=== PATIENT | male | born 1975 | race Two or more races ===

== ENCOUNTER 2018-06-09 20:24 | Emergency (ER) | payer BC ==
[~2018-06-09] VITALS: Ht 185.4 cm; Wt 82.6 kg
--- NOTE | 2018-06-09 20:30 | NUR ---
PT BIBSELF STATING "RECEIVED BAD NEWS AND THEN HAD BLURRED VISION". -AN, -DIZZINESS. PT DENIES PAIN AT THIS TIME. NAD NOTED. RESP EVEN AND UNLABORED. PT ON MONITOR IN BED 8. WILL CONTINUE TO MONITOR.
--- NOTE | 2018-06-09 20:35 | NUR ---
TECH AT BEDSIDE FOR EKG
--- NOTE | 2018-06-09 20:40 | NUR ---
FAMILY AT BEDSIDE
--- NOTE | 2018-06-09 21:00 | NUR ---
PHLEB AT BEDSIDE FOR LAB DRAW
[2018-06-09 21:04] VITALS: BP 138/84
[2018-06-09 21:17] LABS: CARBON DIOXIDE 30 mmol/L (21-32); CHLORIDE 106 mmol/L (98-107); CREATININE 1.3 mg/dL (0.6-1.3); GLUCOSE 100 mg/dL (74-106); POTASSIUM 4.3 mmol/L (3.5-5.1); SODIUM SERUM 143 mmol/L (136-145); UREA NITROGEN, BLOOD 17 mg/dL (7-18)
[2018-06-09 21:49] LABS: BASOPHILS % (AUTO) 0.9 % (0.0-2.0); EOSINOPHILS % (AUTO) 1.1 % (0.0-6.0); HEMATOCRIT 44 % (39-51); HEMOGLOBIN 14.9 g/dL (13.5-17.5); LYMPHOCYTES # (AUTO) 1.8 /CMM (0.8-4.8); LYMPHOCYTES % (AUTO) 35.9 % (20.0-44.0); MEAN CORPUSCULAR HGB CONC 34 g/dl (31.0-36.0); MEAN CORPUSCULAR VOLUME 85 fL (80-96); MONOCYTES # (AUTO) 0.3 /CMM (0.1-1.30); MONOCYTES % (AUTO) 4.9 % (2.0-12.0); NEUTROPHILS # (AUTO) 2.9 /CMM (1.8-8.9); NEUTROPHILS % (AUTO) 57.2 % (43.0-81.0); PLATELET COUNT (AUTO) 233 /CMM (150-450); RED BLOOD CELL COUNT(AUTO) 5.24 MIL/uL (4.5-6.0); WHITE BLOOD COUNT (AUTO) 5.1 K/uL (4.3-11.0)
== END 2018-06-09 22:47 | disposition home or self-care (01) ==
LOC: ER 20:24
DX: H53.8 Other visual disturbances (principal); R94.31 Abnormal electrocardiogram [ECG] [EKG]
CPT/HCPCS: 36415; 80048-TC; 84484-TC; 85025-TC